=== PATIENT | female | born 1940 | race Caucasian/White ===

== ENCOUNTER 2019-07-29 11:52 | Outpatient (CLI) | payer MEDICARE, SELFPAY ==
[2019-07-29 12:35] LABS: Hemoglobin A1C 6.6 % (<5.7)
[2019-07-29 12:39] LABS: Alanine Aminotransferase 17 U/L (4-35); Albumin Level 4.5 g/dL (3.5-5.1); Alkaline Phosphatase 125 U/L (38-126); Aspartate Amino Transferase 25 U/L (14-36); Bilirubin,Total 0.4 mg/dL (0.2-1.3); Blood Urea Nitrogen 17 mg/dL (7-17); Calcium 9.6 mg/dL (8.4-10.2); Carbon Dioxide 31 mmol/L (22-30); Chloride 101 mmol/L (98-107); Cholesterol 163 mg/dL (0-200); Estimated Glomerular Filt Rate > 60; Glucose 121 mg/dL (65-105); HDL Direct 61 mg/dL; Potassium 3.7 mmol/L (3.4-5.0); Sodium 138 mmol/L (137-145); Triglycerides 94 mg/dL (<150)
[2019-07-29 12:49] LABS: LDL Cholesterol Direct 72 mg/dL
[2019-07-29 13:32] LABS: Free T4 Free Thyroxine 1.27 ng/mL (0.78-2.19)
== END 2019-07-29 11:53 | disposition home or self-care (01) ==
PROVIDERS: PCP Internal Medicine; Visit Provider Nurse Practitioner
DX: E03.9 Hypothyroidism, unspecified (principal); E78.5 Hyperlipidemia, unspecified; E11.9 Type 2 diabetes mellitus without complications
CPT/HCPCS: 36415; 80053; 80061; 83036; 84439; 84443

== ENCOUNTER 2020-01-08 12:26 | Outpatient (CLI) | payer MEDICARE, SELFPAY ==
--- NOTE | ~2020-01-08 | XR_ITS ---
XR chest 2V 01/08/2020 12:49 Indication: Dry cough. Procedure: PA and lateral views of the chest Comparison: Comparison to multiple prior studies sequentially, with oldest reviewed study dated 10/29. Findings: There is a right perihilar spiculated mass, compatible with treated malignancy. Elevated ri ght diaphragm. Heart size normal. Left lung clear. No acute focal pneumonia, edema or effusion. Impression: 1: Right perihilar mass, compatible with treated malignancy. Reviewed, dictated and finalized at location B. IGERATION MANAGER Impression: 1: Right perihilar mass, compatible with treated malignancy.
== END 2020-01-08 12:27 | disposition home or self-care (01) ==
LOC: ANHIMG 12:30
PROVIDERS: PCP Internal Medicine; Visit Provider Internal Medicine
DX: R05 Cough (principal); R91.8 Other nonspecific abnormal finding of lung field
CPT/HCPCS: 71046

== ENCOUNTER 2020-05-08 11:55 | Outpatient (CLI) | payer MEDICARE, SELFPAY ==
[2020-05-08 12:55] LABS: Add Urine Microscopic? YES; Appearance Urine Cloudy (Clear); Bilirubin Urine Negative (Negative); Blood Urine 2+ (Negative); Color Urine Yellow (Yellow); Glucose Urine UA Negative (Negative); Ketones Urine Negative (Negative); Leukocyte Esterase Ur 3+ LEU/UL (Negative); Mucus Urine Rare /lpf; Nitrate Urine Negative (Negative); Protein Urine 1+ mg/dL (Negative); RBC Urine 21-50 /hpf (0-2); Specific Grav Ur 1.017 (1.001-1.035); Squamous Epithelial Cell Urine Occasional /hpf (Few); Urobilinogen Urine Negative mg/dL (<2.0); WBC Urine >75 /hpf
[2020-05-08 13:01] LABS: Hemoglobin A1C 5.7 % (<5.7)
[2020-05-08 13:06] LABS: Alanine Aminotransferase 15 U/L (4-35); Albumin Level 4.5 g/dL (3.5-5.1); Alkaline Phosphatase 100 U/L (38-126); Anion Gap 8 mmol/L (8-16); Aspartate Amino Transferase 25 U/L (14-36); Bilirubin,Total 0.5 mg/dL (0.2-1.3); Blood Urea Nitrogen 16 mg/dL (7-17); Calcium 9.6 mg/dL (8.4-10.2); Carbon Dioxide 32 mmol/L (22-30); Chloride 99 mmol/L (98-107); Cholesterol 180 mg/dL (0-200); Estimated Glomerular Filt Rate > 60; Glucose 104 mg/dL (65-105); HDL Direct 70 mg/dL; Potassium 3.9 mmol/L (3.4-5.0); Sodium 139 mmol/L (137-145); Triglycerides 104 mg/dL (<150)
[2020-05-08 13:13] LABS: LDL Cholesterol Direct 70 mg/dL
== END 2020-05-08 11:56 | disposition home or self-care (01) ==
PROVIDERS: PCP Internal Medicine; Referring Provider Nurse Practitioner; Visit Provider Nurse Practitioner
DX: E03.9 Hypothyroidism, unspecified (principal); E78.5 Hyperlipidemia, unspecified; E11.9 Type 2 diabetes mellitus without complications; R30.0 Dysuria
CPT/HCPCS: 36415; 80053; 80061; 81001; 83036; 84443; 87086; 87088

== ENCOUNTER 2020-08-24 17:15 | Outpatient (CLI) | payer MEDICARE, SELFPAY | END 2020-08-24 17:16 | disposition home or self-care (01) | LOC: ANHLAB 17:17 | PROVIDERS: PCP Internal Medicine; Visit Provider Internal Medicine | DX: E03.9 Hypothyroidism, unspecified (principal); R41.3 Other amnesia | CPT/HCPCS: 36415; 82607; 84443 ==

== ENCOUNTER 2020-12-14 15:23 | Outpatient (CLI) | payer MEDICARE, SELFPAY ==
[2020-12-14 16:14] LABS: Alanine Aminotransferase 21 U/L (4-35); Albumin Level 4.8 g/dL (3.5-5.1); Alkaline Phosphatase 104 U/L (38-126); Anion Gap 9 mmol/L (8-16); Aspartate Amino Transferase 28 U/L (14-36); Bilirubin,Total 0.3 mg/dL (0.2-1.3); Blood Urea Nitrogen 18 mg/dL (7-17); Calcium 10.4 mg/dL (8.4-10.2); Carbon Dioxide 32 mmol/L (22-30); Chloride 97 mmol/L (98-107); Cholesterol 193 mg/dL (0-200); Estimated Glomerular Filt Rate > 60; Glucose 116 mg/dL (65-110); HDL Direct 80 mg/dL; Potassium 3.4 mmol/L (3.4-5.0); Sodium 138 mmol/L (137-145); Triglycerides 231 mg/dL (<150)
[2020-12-14 16:22] LABS: Creatinine Urine 264.5 mg/dL
[2020-12-14 16:25] LABS: LDL Cholesterol Direct 73 mg/dL
[2020-12-14 16:27] LABS: MALB Creatinine Ratio 6.1 mg/g (0-30); Microalbumin Urine Random 16.1 mg/L (0-16.7)
[2020-12-14 16:37] LABS: Vitamin D 25 Hydroxy 39.2 ng/mL
== END 2020-12-14 15:24 | disposition home or self-care (01) ==
LOC: ANHLAB 15:25
PROVIDERS: PCP Internal Medicine; Visit Provider Nurse Practitioner
DX: E11.9 Type 2 diabetes mellitus without complications (principal); E03.9 Hypothyroidism, unspecified; E78.2 Mixed hyperlipidemia; Z13.21 Encounter for screening for nutritional disorder
CPT/HCPCS: 36415; 80053; 80061; 82043; 82306; 83036; 84443

== ENCOUNTER 2021-06-04 14:41 | Outpatient (CLI) | payer MEDICARE, SELFPAY ==
[2021-06-04 15:27] LABS: Hemoglobin A1C 5.9 % (<5.7)
[2021-06-04 15:33] LABS: Alanine Aminotransferase 28 U/L (4-35); Albumin Level 4.8 g/dL (3.5-5.1); Alkaline Phosphatase 105 U/L (38-126); Anion Gap 9 mmol/L (8-16); Aspartate Amino Transferase 36 U/L (14-36); Bilirubin,Total 0.2 mg/dL (0.2-1.3); Blood Urea Nitrogen 17 mg/dL (7-17); Calcium 10.2 mg/dL (8.4-10.2); Carbon Dioxide 34 mmol/L (22-30); Chloride 95 mmol/L (98-107); Cholesterol 212 mg/dL (0-200); Estimated Glomerular Filt Rate 60; Glucose 117 mg/dL (65-110); HDL Direct 74 mg/dL; Potassium 3.9 mmol/L (3.4-5.0); Sodium 138 mmol/L (137-145); Triglycerides 265 mg/dL (<150)
[2021-06-04 15:44] LABS: LDL Cholesterol Direct 77 mg/dL
[2021-06-04 16:12] LABS: Creatinine Urine 67.1 mg/dL; MALB Creatinine Ratio 14.9 mg/g (0-30)
== END 2021-06-04 14:42 | disposition home or self-care (01) ==
PROVIDERS: PCP Internal Medicine; Visit Provider Nurse Practitioner
DX: E11.9 Type 2 diabetes mellitus without complications (principal); E78.2 Mixed hyperlipidemia; E03.9 Hypothyroidism, unspecified
CPT/HCPCS: 36415; 80053; 80061; 82043; 83036; 84443

== ENCOUNTER 2021-06-29 16:08 | Outpatient (CLI) | payer MEDICARE, SELFPAY ==
--- NOTE | ~2021-06-29 | XR_ITS ---
EXAMINATION: XR chest 2V Exam Date/Time: 06/29/2021 16:30 CDT HISTORY: R05 - Cough X 1 WEEK, SOB X 2 WKS, NO CARDIAC HX Comparison: 01/08/2020. RESULT: Lines, tubes, and devices: None. Lungs and pleura: Right suprahilar and hilar opacity with retraction, unchanged given interval diffe rences in technique, previously reported as treated malignancy. No acute pulmonary finding. Cardiomediastinal silhouette: Stable cardiomediastinal silhouette. Other: No acute osseous or upper abdominal finding. IMPRESSION: No acute cardiopulmonary process. Reviewed, dictated and finalized at location K.
== END 2021-06-29 16:09 | disposition home or self-care (01) ==
PROVIDERS: PCP Internal Medicine; Visit Provider Internal Medicine
DX: R05.9 Cough, unspecified (principal)
CPT/HCPCS: 71046

== ENCOUNTER 2021-12-28 11:57 | Outpatient (CLI) | payer MEDICARE, SELFPAY ==
--- NOTE | ~2021-12-28 | XR_ITS ---
EXAMINATION: XR chest 2V DATE: 12/28/2021 12:23 INDICATION: One week of painful dry cough TECHNIQUE: PA and lateral views of the chest were obtained. COMPARISON: Chest radiograph dated 06/29/2021 FINDINGS: Unchanged volume loss in the right hemithorax. Stable appearance of a right perihilar mass with spicu lated margins consistent with reported treated malignancy. No new airspace opacities, pulmonary edema , pleural effusion or pneumothorax. Heart size is normal. Mild S-shaped thoracolumbar scoliosis. Chol ecystectomy clips in right upper quadrant. IMPRESSION: 1. Stable appearance of a right perihilar mass consistent with treated malignancy. No acute cardiopul monary disease. Reviewed, dictated and finalized at location A. 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 Stable appearance of a right perihilar mass consistent with treated malignan cy. No acute cardiopulmonary disease.
[2021-12-28 12:56] LABS: Hemoglobin A1C 6.5 % (<5.7)
[2021-12-28 13:00] LABS: Alanine Aminotransferase 21 U/L (6-35); Albumin Level 4.8 g/dL (3.5-5.1); Alkaline Phosphatase 86 U/L (38-126); Anion Gap 12 mmol/L (8-16); Aspartate Amino Transferase 28 U/L (14-36); Bilirubin,Total 0.4 mg/dL (0.2-1.3); Blood Urea Nitrogen 19 mg/dL (7-17); Calcium 9.6 mg/dL (8.4-10.2); Carbon Dioxide 27 mmol/L (22-30); Chloride 98 mmol/L (98-107); Cholesterol 180 mg/dL (0-200); Estimated Glomerular Filt Rate 53; Glucose 78 mg/dL (65-110); HDL Direct 75 mg/dL; Potassium 4.1 mmol/L (3.4-5.0); Sodium 137 mmol/L (137-145); Triglycerides 114 mg/dL (<150)
[2021-12-28 13:13] LABS: LDL Cholesterol Direct 60 mg/dL
== END 2021-12-28 11:58 | disposition home or self-care (01) ==
LOC: ANHIMG 11:59
PROVIDERS: PCP Internal Medicine; Visit Provider Nurse Practitioner
DX: E78.5 Hyperlipidemia, unspecified (principal); E11.9 Type 2 diabetes mellitus without complications; E03.9 Hypothyroidism, unspecified; R05.9 Cough, unspecified; R91.8 Other nonspecific abnormal finding of lung field
CPT/HCPCS: 36415; 71046; 80053; 80061; 83036; 84443

== ENCOUNTER 2022-03-25 13:20 | Outpatient (CLI) | payer MEDICARE, SELFPAY ==
--- NOTE | ~2022-03-25 | XR_ITS ---
XR lumbar spine 2-3V DATE: 03/25/2022 13:48 INDICATION: Back pain TECHNIQUE: AP, lateral, coned lateral lumbosacral views COMPARISON: None FINDINGS: There is mild thoracolumbar levoscoliosis. Diffuse osteopenia. There is mild degenerative disc disease at L1-2, with moderate to moderately severe degenerative disc disease at L2-3, L3-4 and severe degenerative disc disease at L4-5 and L5-S1. There is grade 1 anterolisthesis at degenerative changes apophyseal joints. The included lower thoracic and lumbar pedicles are intact. No lumbar spine fracture or bone destruct ion is detected. There is degenerative change at the sacroiliac joints. Status post cholecystectomy. IMPRESSION: Multilevel degenerative disc disease, most severe at L4-5 and L5-S1 Grade 1 anterolisthesis at L3-4 Osteopenia, scoliosis Reviewed, dictated and finalized at location A. 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
--- NOTE | ~2022-03-25 | XR_ITS ---
XR shoulder LT min 2V DATE: 03/25/2022 13:48 INDICATION: Left shoulder pain TECHNIQUE: 4 views COMPARISON: None FINDINGS: There is osteopenia. There is degenerative disc disease, uncovertebral joints and apophyseal joint spurring of the cervica l spine. There is dextroscoliosis and degenerative change of the thoracic spine. Normal alignment at the acromion clavicular and glenohumeral joints of the left shoulder. No left cole ulder fracture, dislocation, periosteal reaction or bone destruction is detected. No abnormal left sh oulder soft tissue calcification. IMPRESSION: Osteopenia Prominent cervical spondylosis Dextroscoliosis and degenerative change of the thoracic spine Reviewed, dictated and finalized at location A. SCHOOL
== END 2022-03-25 13:21 | disposition home or self-care (01) ==
LOC: ANHIMG 13:27
PROVIDERS: PCP Internal Medicine; Visit Provider Nurse Practitioner
DX: M85.812 Other specified disorders of bone density and structure, left shoulder (principal); M47.892 Other spondylosis, cervical region; M19.012 Primary osteoarthritis, left shoulder; M51.36 Other intervertebral disc degeneration, lumbar region; M85.88 Other specified disorders of bone density and structure, other site
CPT/HCPCS: 72100; 73030

== ENCOUNTER 2023-02-24 15:29 | Outpatient (CLI) | payer MEDICARE, SELFPAY ==
[2023-02-24 15:53] LABS: Hematocrit 38.4 % (37.0-47.0); Hemoglobin 12.1 g/dL (12.0-15.0); Mean Corpuscular HGB Conc 31.5 g/dl (32-36); Mean Corpuscular Hemoglobin 27.8 pg (26-34); Mean Corpuscular Volume 88.3 fl (80-100); Mean Platelet Volume 9.6 fl (7.4-10.4); Platelet Count Result 361 k/mm3 (150-375); Red Blood Count 4.35 M/mm3 (4.2-5.4); Red Cell Distribution Width 14.4 % (11.5-14.5); White Blood Count 9.4 K/mm3 (4.5-10.0)
[2023-02-24 16:08] LABS: Alanine Aminotransferase 22 U/L (6-35); Albumin Level 4.4 g/dL (3.5-5.1); Alkaline Phosphatase 107 U/L (38-126); Anion Gap 8 mmol/L (8-16); Aspartate Amino Transferase 28 U/L (14-36); Bilirubin,Total 0.7 mg/dL (0.2-1.3); Blood Urea Nitrogen 21 mg/dL (7-17); Calcium 9.9 mg/dL (8.4-10.2); Carbon Dioxide 30 mmol/L (22-30); Chloride 101 mmol/L (98-107); Cholesterol 199 mg/dL (0-200); Estimated Glomerular Filt Rate 53; Glucose 115 mg/dL (65-110); HDL Direct 79 mg/dL; Potassium 3.8 mmol/L (3.4-5.0); Sodium 139 mmol/L (137-145); Triglycerides 128 mg/dL (<150)
[2023-02-24 16:09] LABS: Hemoglobin A1C 6.5 % (<5.7)
[2023-02-24 16:13] LABS: Microalbumin Urine Random 24.7 mg/L (0-16.7)
[2023-02-24 16:18] LABS: LDL Cholesterol Direct 90 mg/dL
== END 2023-02-24 15:30 | disposition home or self-care (01) ==
LOC: ANHLAB 15:30
PROVIDERS: PCP Family Medicine; Visit Provider Family Medicine
DX: C37 Malignant neoplasm of thymus (principal); E03.9 Hypothyroidism, unspecified; E11.9 Type 2 diabetes mellitus without complications; E78.2 Mixed hyperlipidemia; E83.52 Hypercalcemia; F40.9 Phobic anxiety disorder, unspecified; G47.00 Insomnia, unspecified; G47.33 Obstructive sleep apnea (adult) (pediatric); I10 Essential (primary) hypertension; I25.10 Atherosclerotic heart disease of native coronary artery without angina pectoris; Z85.118 Personal history of other malignant neoplasm of bronchus and lung; Z99.89 Dependence on other enabling machines and devices
CPT/HCPCS: 36415; 80053; 80061; 82043; 83036; 84443; 85027

== ENCOUNTER 2024-01-02 12:05 | Outpatient (CLI) | payer MEDICARE, SELFPAY ==
[2024-01-02 12:22] LABS: Mean Corpuscular HGB Conc 33.3 g/dl (32-36); Mean Corpuscular Hemoglobin 29.1 pg (26-34); Mean Corpuscular Volume 87.2 fl (80-100); Mean Platelet Volume 9.6 fl (7.4-10.4); Platelet Count Result 317 k/mm3 (150-375); Red Blood Count 4.13 M/mm3 (4.2-5.4); Red Cell Distribution Width 14.6 % (11.5-14.5); White Blood Count 7.9 K/mm3 (4.5-10.0)
[2024-01-02 12:46] LABS: Alanine Aminotransferase 17 U/L (6-35); Albumin Level 4.4 g/dL (3.5-5.1); Alkaline Phosphatase 111 U/L (38-126); Anion Gap 8 mmol/L (4-12); Aspartate Amino Transferase 26 U/L (14-36); Bilirubin,Total 0.5 mg/dL (0.2-1.3); Blood Urea Nitrogen 18 mg/dL (7-17); Calcium 9.7 mg/dL (8.4-10.2); Carbon Dioxide 31 mmol/L (22-30); Chloride 101 mmol/L (98-107); Estimated Glomerular Filt Rate 53; Glucose 135 mg/dL (65-110); Potassium 3.5 mmol/L (3.4-5.0); Sodium 140 mmol/L (137-145)
[2024-01-02 13:10] LABS: Hemoglobin A1C 6.4 % (<5.7)
[2024-01-02 13:53] LABS: Folic Acid > 20.0 ng/mL (2.76->20)
== END 2024-01-02 12:06 | disposition home or self-care (01) ==
PROVIDERS: PCP Family Medicine; Visit Provider Family Medicine
DX: C37 Malignant neoplasm of thymus (principal); E03.9 Hypothyroidism, unspecified; E11.9 Type 2 diabetes mellitus without complications; E78.5 Hyperlipidemia, unspecified; G47.00 Insomnia, unspecified; G47.33 Obstructive sleep apnea (adult) (pediatric); I10 Essential (primary) hypertension; I25.10 Atherosclerotic heart disease of native coronary artery without angina pectoris; Z00.00 Encounter for general adult medical examination without abnormal findings; Z99.89 Dependence on other enabling machines and devices; G62.9 Polyneuropathy, unspecified
CPT/HCPCS: 36415; 80053; 82607; 82746; 83036; 84443; 85027

== ENCOUNTER 2024-01-26 11:31 | Outpatient (CLI) | payer MEDICARE, SELFPAY ==
[2024-01-26 11:58] LABS: Add Urine Microscopic? YES; Appearance Urine Clear (Clear); Bacteria Urine None Seen /hpf; Bilirubin Urine 1+ (Negative); Blood Urine Negative (Negative); Color Urine Dark Yellow (Yellow); Glucose Urine UA Negative (Negative); Ketones Urine Trace mg/dL (Negative); Leukocyte Esterase Ur 1+ LEU/UL (Negative); Nitrate Urine Negative (Negative); Protein Urine Trace mg/dL (Negative); Specific Grav Ur 1.029 (1.001-1.035); Squamous Epithelial Cell Urine Few /hpf (Few)
[2024-01-26 12:51] LABS: Iron 79 ug/dL (37-170)
[2024-01-26 13:00] LABS: Percent Iron Saturation 24 % (20-50)
[2024-01-26 13:09] LABS: Free T4 Free Thyroxine 1.13 ng/dL (0.78-2.19)
[2024-01-27 10:40] LABS: T3 Free 2.7 pg/mL (2.3-4.2)
== END 2024-01-26 11:32 | disposition home or self-care (01) ==
LOC: ANHLAB 11:33
PROVIDERS: PCP Family Medicine; Visit Provider Family Medicine
DX: E11.9 Type 2 diabetes mellitus without complications (principal); D64.9 Anemia, unspecified; E03.9 Hypothyroidism, unspecified; R42 Dizziness and giddiness; R53.83 Other fatigue
CPT/HCPCS: 36415; 81001; 82728; 83540; 83550; 84439; 84443; 84480

== ENCOUNTER 2024-04-03 08:14 | Outpatient (CLI) | payer MEDICARE, SELFPAY ==
--- NOTE | 2024-04-03 08:25 | ECHO_ITS ---
Patient Info Name: Chari Molina Age: 83 years : 1940 Gender: Female Ht: 60 in Wt: 117 lbs BSA: 1.51 m2 HR: 92 bpm BP: 169 / 97 mmHg Heart Rhythm: Sinus Rhythm Technical Quality: Fair Exam Date: 04/03/2024 8:40 AM Exam Location: Echo Lab Patient Status: Outpatient Admit Date: 04/03/2024 Staff Ordering Physician: Rodney Galindo DO Business Continuity Planning Director: Chapincito Jones RDCS Attending Provider: Rodney Galindo DO Referring Physician: Mateo BRAMBILA; Exam Type: CA echo dop color flow w con Study Info Indications R06.00 - Dyspnea, unspecified Complete two-dimensional, color flow and Doppler transthoracic echocardiogram is performed. Summary 1. Complete two-dimensional, color flow and Doppler transthoracic echocardiogram is performed. 2. Left ventricular chamber dimension is normal. 3. Left ventricular systolic function is normal, estimated at 60-65%. 4. The left ventricular diastolic function is grade I diastolic dysfunction. 5. E/e' 11 is mildly elevated. 6. Left atrial chamber dimension is mildly enlarged. 7. There is mild tricuspid valve regurgitation. 8. No pulmonary hypertension, estimated pulmonary arterial systolic pressure is 24 mmHg. 9. There is trivial pericardial effusion. Left Ventricle E/e' 11 is mildly elevated. Left ventricular chamber dimension is normal. Left ventricular systolic function is normal, estimated at 60-65%. The left ventricular diastolic function is grade I diastolic dysfunction. Right Ventricle Right ventricular systolic function is normal and with normal TAPSE 1.8 cm. Right ventricular chamber dimension is normal. Left Atria Left atrial chamber dimension is mildly enlarged. Right Atria Right atrial chamber dimension is normal. Aortic Valve The aortic valve is not well visualized. Cannot determine number of aortic valve leaflets. There is no aortic valve stenosis. There is no aortic valve regurgitation. Pulmonic Valve There is no pulmonic regurgitation. Mitral Valve There is no mitral valve stenosis. There is no mitral valve regurgitation. Tricuspid Valve There is mild tricuspid valve regurgitation. No pulmonary hypertension, estimated pulmonary arterial systolic pressure is 24 mmHg. Pericardium/Pleural There is trivial pericardial effusion. Inferior Vena Cava Normal inferior vena cava with >50% collapse upon inspiration consistent with normal right atrial pressure, 5 mmHg. Aorta The aortic root size at the sinus of Valsalva is normal. Left Ventricular Outflow Tract Name Value Normal LVOT 2D LVOT Diameter 1.91 cm LVOT Doppler LVOT Peak Velocity 95.68 cm/s LVOT Peak Gradient 4 mmHg LVOT Mean Gradient 2 mmHg LVOT VTI 20.17 cm LVOT VTI/AV VTI Ratio 0.79 LVOT Stroke Volume 58.07 ml LVOT CO 4.73 l/min LVOT CI 3.14 L/min/m2 Pulmonic Valve Name Value Normal PV Doppler PV Peak Velocity 88.36 cm/s PV Peak Gradient 3 mmHg Mitral Valve Name Value Normal MV Doppler MV Decel [place] 308.63 cm/s2 MV PHT 0 s MV Area (PHT) 4.06 cm2 4.00-5.00 MV Diastolic Function MV E Peak Velocity 57.66 cm/s MV A Peak Velocity 86.75 cm/s MV E/A 0.66 MV Decel Time 0 s MV Annular TDI MV Septal e' Velocity 5.51 cm/s >=8.00 MV E/e' (Septal) 10.46 <=8.00 MV Lateral e' Velocity 4.82 cm/s >=10.00 MV E/e' (Lateral) 11.97 <=8.00 MV e' Average 5.17 MV E/e' (Average) 11.21 Tricuspid Valve Name Value Normal TV Regurgitation Doppler TR Peak Velocity 219.89 cm/s TR Peak Gradient 19 mmHg Estimated PAP/RSVP RA Pressure 5 mmHg <=5 PA Systolic Pressure 24 mmHg <36 RV Systolic Pressure 24 mmHg <36 TV Annular TDI TV Lateral Renu s' Velocity 10.01 cm/s 9.50-18.70 Aortic Valve Name Value Normal AV Doppler AV Peak Velocity 135.51 cm/s AV Peak Gradient 7 mmHg AV Mean Gradient 4 mmHg AV VTI 25.53 cm AV Area (Cont Eq VTI) 2.28 cm2 >=3.00 AV Area (Cont Eq Nicolás) 2.03 cm2 AV V1/V2 Ratio 0.71 AV Regurgitation 2D LVOT Area 2.88 cm2 Ventricles Name Value Normal LV Dimensions 2D/MM IVS Diastolic Thickness (2D) 0.77 cm 0.60-1.00 LVID Diastole (2D) 3.90 cm 3.80-5.20 LVIW Diastolic Thickness (2D) 0.80 cm 0.60-0.90 LVID Systole (2D) 2.78 cm 2.20-3.50 LVOT Diameter 1.91 cm LV Mass (2D Cubed) 87.40 g 67.00-162.00 LV Mass Index (2D Cubed) 0.01 g/cm2 0.00-0.01 Relative Wall Thickness (2D) 0.41 LV Fractional Shortening/Ejection Fraction 2D/MM LV Fractional Shortening (2D) 29 % 27-45 LV EF (2D Teichnatalioz) 56 % 54-74 LV Diastolic Volume (4C MOD) 69.26 ml LV EF (4C MOD) 56 % LV Diastolic Volume (2C MOD) 79.37 ml LV EF (2C MOD) 55 % LV Diastolic Volume (BP MOD) 74.75 ml 46.00-106.00 LV Diastolic Volume Index (BP MOD) 0.05 l/m2 0.03-0.06 LV Systolic Volume (BP MOD) 32.97 ml 14.00-42.00 LV Systolic Volume Index (BP MOD) 0.02 l/m2 0.01-0.02 LV EF (BP MOD) 56 % 54-74 LV Diastolic Length (4C) 7.24 cm LV Systolic Length (4C) 5.93 cm LV Stroke Volume (4C MOD) 38.96 ml Atria Name Value Normal LA Dimensions LA Volume (4C A-L) 44.17 ml LA Volume (BP A-L) 45.76 ml RA Dimensions RA Area (4C) 14.19 cm2 <=18.00 Report Signatures
--- OUTSIDE RECORDS SUMMARY | 2024-04-03 08:25 | XMS_ITS | Continuity of Care Document ---
Author Organization [facility] Address [address] [facility] [address] [place] [address] Phone Care Team Providers Care Paper Stacker Name Role Phone Josh OD OD, Zhang [...] Tear Osmolarity Microfluidic Analysis No Refraction [facility] Frames Purchases Progressive Lens Per Lens Anti-reflective [...] Diagnoses Date Provider Providers Copied on Encounter [facility], [address] [place] [address] [address], [place], [place], [address], tel:[phone] [facility] No Information Josh OD Zhang. [address], [place], [address], [place]. tel:[phone] Office/outpat ient Visit, Est [facility], [address], [place], [place], [address], [place] tel:[phone] [facility] blurry vision (chief complaint)d ry eyes (chief complaint) CUPPING OF OPTIC DISCTEAR FILM INSUFFIC NOSPUNCTATE KERATITIS Minervay OD Zhang. [address], [place], [address], [place]. tel:[phone] Referring Provider: Zhang Moreno OD P, [address] [place], [address] . tel:[phone] [facility], [address], [place], [place], [address], [place] tel:[phone] [facility] No Information [facility] . [address], [address], [place], [place], [address], [place]. tel:[phone] Referring Provider: Zhang Moreno OD P, [address] [facility], [place], [address] . tel:[phone] sulting Provider: Karol Padilla, [address] [facility], [place], [address]. [facility], [address] [place] [address] [address], [place], [place], [address], [place] tel:[phone] [facility] No Information Josh BREEN Zhang. [address] [facility], [place], [place], [address], [place]. tel:[phone] Referring Provider: Zhang Moreno OD P, [address] [facility], [place], [address] . tel:[phone] Office/outpat ient Visit, Est [facility], [address] [place] [address] [address], [place], [place], [address], [place] tel:[phone] [facility] No Information Josh BREEN Zhang. [address] [facility], [place], [place], [address], [place]. tel:[phone] Referring Provider: Zhang Moreno OD P, [address] [facility], [place], [address] . tel:[phone] Office/outpat ient Visit, [facility], [address] [place] [address] [address], [place], [place], [address], [place] tel:[phone] [facility] No Information Josh BREEN Zhang. [address] [facility], [place], [place], [address], [place]. tel:[phone] Referring Provider: Zhang Moreno OD P, [address] [facility], [place], [address] . tel:[phone] Office/outpat ient Visit, [facility], [address], [place], [place], [address], [place] tel:[phone] [facility] No Information Josh Holcomb. [address], [place], [address], [place]. tel:[phone] Referring Provider: Zhang Moreno OD P, [address] [place], [address] . tel:[phone] Family History Family Member Type Diagnosis Age At Onset Mother Problem (finding) diabetes melli tus in first degree relative Cousin Problem (finding) degenerative disorder o f macula Payers Payer name Insurance type Covered republican ID Authoriza tion(s) No Information Social History [...]
--- OUTSIDE RECORDS SUMMARY | 2024-04-03 08:25 | XMS_ITS | Patient Health Summary ---
Author Organization [facility] Address [address] [place] [address] Care Team Providers Care Assembler Type Bar And Segment Name Role Phone Nael Iglesias MD Primary Care Provider [phone] Note from [facility],non-owned Affiliates and Associated Physician Practices is amultiple site organization consisting of ambulatory clinics and hospital sitesin [place], [place], [place] and [place]. This disclosure is being madepursuant to the Care Everywhere program and may not contain all information available regarding this patient. Last updated 17.[facility] Social History Tobacco Use Types Packs/Day Years Used Date Smoking Tobacco: Never Assessed Sex and Gender Information Value Date Recorded Sex Assigned at Not on file Gender Identity Not on file Sexual Orientation Not on file Procedures * MAMMO BILAT SCREENING(Performed 09/15/2014) Performed for Other screening mammogram * MAMMO BILAT SCREENING(Performed 07/30/2013) Performed for Other screening mammogram * MAMMO BILAT SCREENING(Performed 06/05/2012) Performed for Other Screening Mammogram * MAMMO BILAT SCREENING(Performed 05/09/2011) Performed for Other screening mammogram * PAP IG RFLX HPV ASCU(Performed 04/25/2011) * MAMMO BILAT SCREENING(Performed 05/25/2010) Performed for Other screening mammogram * MAMMO BILAT SCREENING(Performed 05/14/2009) Performed for Other Screening Mammogram * PATHOLOGY/GENETICS HISTORICAL-ONBASE(Performed 11/25/2008) * PATHOLOGY/GENETICS HISTORICAL-ONBASE(Performed 10/10/2007) * PATHOLOGY/GENETICS HISTORICAL-ONBASE(Performed 11/20/2006) * GROSS + MICRO EXAM(Performed 12/14/1999) * GROSS + MICRO EXAM(Performed 06/17/1997) Results * JOSE ARMANDO SCREENING DIGITAL IMAGE BILATERAL [id number] (09/15/2014 10:43 AM CDT) Only the most recent of6 resultswithin the time period is included. Anatomical Region Laterality Modality Breast Bilateral Mammography 09/15/2014 3:45 PM CDT Narrative 09/15/2014 3:47 PM CDT EXAMINATION: Digital screening mammogram with tomosynthesis on 09/15/14 PRIOR: 2013 FINDINGS: Low dose full field digital tomosynthesis exam was performed with 2D and 3D acquisitions. Computer assisted detection was utilized. Tissue is fatty. There is no significant change since the prior mammogram. ASSESSMENT: BIRADS 1 : Negative mammogram RECOMMENDATION: Screening mammogram in one year. Thank you for allowing us to participate in the care of your patient. [facility] utilizes [employer] as a reminder system to notify patients of their next recommended mammogram. Nael Iglesias MD MAMMO ORDERABLES * PAP IG RFLX HPV ASCU (04/25/2011) PART OF UTERINE CERVIX / Unknown 04/25/2011 Narrative [facility] - 04/27/2011 12:15 PM CDT Preferred Lab:->OTHER EXTERNAL LAB Historical Provider LAB - PATHOLOGY/C YTOLOGY ORDERABLES Performing Organization Address [facility] de Phone Number [facility] * PATHOLOGY/GENETICS HISTORICAL-ONBASE (11/25/2008) Only the most recent of3 resultswithin the time period is included. 11/25/2008 Historical Provider LAB - CHEMISTRY O RDERABLES Performing Organization Address [facility] Co de Phone Number [facility] * GROSS + MICRO EXAM (12/14/1999 2:29 PM FLAT BED OPERATOR) Only the most recent of2 resultswithin the time period is included. Result CASE NUMBER [id number] Comment: ORDERING PHYSICIAN INA BERG SPECIMEN TYPE Endocervical Curret Date 12/14/1999 Physician Elaina Berg Description Two separate specimens are received in formalin labeled with the patient's name. The first specimen is labeled endocervical curettings and consists of pink mucoid tissue fragment measuring 0.5 x 0.3 x 0.2 cm. The specimen is submitted in its entirety in cassette A. The second specimen is labeled with the patient's name and endometrial curettings and consists of pink mucoid, bloody soft tissue fragments measuring 1.5 x 0.3 x 0.2 cm. The specimen is submitted in its entirety in cassette B. AE/bk Microscopic Exam Section labeled A reveals blood, mucoid material intermixed with strips of endocervical and endometrial epithelium. No endometrial stroma or glands are present for evaluation. Section labeled B reveals blood, mucoid material intermixed with strips of cervical and endocervical epithelial fragments without any dysplasia. The endometrium shows mainly stroma with strips of surface epithelium from the stroma. No endometrial glandular elements are present for evaluation. This material is insufficient for phase evaluation. Diagnosis I. Endocervical curettings A. No pathologic diagnosis. II. Endometrial curettings A. Insufficient material for phase evaluation. B. No evidence of malignancy. Overhead Crane Operator bk Pathologist Eddie Alexandra M.D. [place]. 12/15/1999 1414 <2> CPT code 39435/91322, 57024/02000 MISCELLANEOUS SAMPLES / Unknown 12/14/1999 2:29 PM FLAT BED OPERATOR 12/14/1999 2:29 PM FLAT BED OPERATOR Historical Provider LAB - PATHOLOGY/C YTOLOGY ORDERABLES Care Teams Assembler Type Bar And Segment Relationship Specialty Start Date End Date Nael Iglesias MD [address] [place] [address] PCP - General 05/04/09
--- OUTSIDE RECORDS SUMMARY | 2024-04-03 08:25 | XMS_ITS | Clinical Summary ---
Author Organization [facility] Address [address] [place] [address] Care Team Providers Care Cashier Greeter Name Role Phone Unavailable Primary Care Provider Unavailabl e Social History Tobacco Use Types Packs/Day Years Used Date Smoking Tobacco: Never Assessed Comments Unknown Sex and Gender Information Value Date Recorded Sex Assigned at Not on file Legal Sex Female 7:16 PM CDT Gender Identity Not on file Sexual Orientation Not on file Plan of Treatment Health Maintenance Due Date Last Done Comments DTaP, Tdap and Td Vaccines ( 1 - Tdap) 08/20/1959 Zoster Vaccines (1 of 2) 1990 Dexa Scan (General) 2005 Pneumococcal Vaccine: 65+ Ye ars (1 of 1 - PCV) 2005 RSV Immunization or 60+ Years (1 - 1-dose 75+ series) 08/20/2015 COVID-19 Vaccine (2023-2 5 season) 2023 Influenza Adult (#1) 2023 Meningococcal B Vaccine Aged Out No l onger eligible based on patient's age to complete this topic Meningococcal Vaccine Aged Out No leonel catalina eligible based on patient's age to complete this topic RSV Immunizations Under 20 Months Aged Out No longer eligible based on patient's age to complete this topic
--- OUTSIDE RECORDS SUMMARY | 2024-04-03 08:25 | XMS_ITS | Referral Summary ---
Author Organization [facility] Address [address] [place] [address] Care Team Providers Care Senior Product Designer Name Role Phone Nael Iglesias MD Primary Care Provider [phone] Source Comments [facility],non-owned Affiliates and Associated Physician Practices is amultiple site organization consisting of ambulatory clinics and hospital sitesin [place], [place], [place] and [place]. This disclosure is being madepursuant to the Care Everywhere program and may not contain all information available regarding this patient. 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
--- OUTSIDE RECORDS SUMMARY | 2024-04-03 08:25 | XMS_ITS | Clinical Summary ---
Author Organization 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 COUNSELOR Gender Identity Not on file Sexual Orientation Not on file Plan of Treatment Health Maintenance Due Date Last Done Comments DEXA Bone Density 1940 Hepatitis C Virus (HCV) Screening 1940 TdaP Immunization 1940 Zoster Immunization (1 of 2) 1990 Respiratory Syncytial Virus (RSV) Immunization (Adult) (1 - 1-dose 75+ series) 08/20/2015 Pneumococcal Immunization (5 0+ years) (2 of 2 - PPSV23) 01/26/2018 01/26/2017 Influenza Immunization (#1) 2023 11/21/2011 SARS-COV-2 Immunization ( season) 2023 Pneumococcal Immunization Combined Discontinued 01/26/2017 Hepatitis B Immunization Aged Out No longer eligible based on patient's age to complete this topic Meningococcal Immunization (ACWY) Aged Out No longer eligible based on patient's age to complete this topic Rotavirus Immunization Aged Out No lo nger eligible based on patient's age to complete this topic
--- OUTSIDE RECORDS SUMMARY | 2024-04-03 08:25 | XMS_ITS | Clinical Summary ---
Author Organization [facility] Address [address] [place] [address] Care Team Providers Care Director Of Security Name Role Phone Nael Iglesias MD Primary Care Provider [phone] Source Comments [facility],non-owned Affiliates and Associated Physician Practices is amultiple site organization consisting of ambulatory clinics and hospital sitesin [place], [place], [place] and [place]. This disclosure is being madepursuant to the Care Everywhere program and may not contain all information available regarding this patient. Last updated 17.[id number] Family History Medical History Relation Name Comments Cancer - Breast Neg Hx Cancer - Ovarian Neg Hx Social History Tobacco Use Types Packs/Day Years Used Date Smoking Tobacco: Never Assessed Sex and Gender Information Value Date Recorded Sex Assigned at Not on file Gender Identity Not on file Sexual Orientation Not on file Plan of Treatment Health Maintenance Due Date Last Done Comments BONE DENSITY TESTING 1940 DTAP/TDAP/TD VACCINES (1 - Tdap) 08/20/1959 PNEUMOCOCCAL VACCINE 50+ (1 of 1 - PCV) 1990 ZOSTER VACCINE (1 of 2) 1990 Respiratory Syncytial Virus (RSV) Vaccine Pt: or over 60 yrs (1 - 1-dose 75+ series) 08/20/2015 COVID-19 VACCINE (2023-2 5 season) 2023 INFLUENZA VACCINE (#1) 2023 DEPRESSION SCREENING 02/07/2024 MEDICARE AWV CALENDAR YEAR 2024 HEPATITIS B VACCINE Aged Out No longe r eligible based on patient's age to complete this topic HIB VACCINE Aged Out No longer eligi ble based on patient's age to complete this topic HPV VACCINE Aged Out No longer eligi ble based on patient's age to complete this topic MENINGOCOCCAL (Group B) VACCINE Aged Out No longer eligible based on patient's age to complete this topic MENINGOCOCCAL VACCINE Aged Out No leonel catalina eligible based on patient's age to complete this topic Advance Directives Documents on File Type Date Recorded 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
== END 2024-04-03 08:15 | disposition home or self-care (01) ==
PROVIDERS: PCP Family Medicine; Visit Provider Internal Medicine Cardiovascular Disease
DX: R06.09 Other forms of dyspnea (principal); I07.1 Rheumatic tricuspid insufficiency; I31.39 Other pericardial effusion (noninflammatory)
CPT/HCPCS: 93306; C8929

== ENCOUNTER 2024-08-23 14:58 | Outpatient (CLI) | payer MEDICARE, SELFPAY ==
--- OUTSIDE RECORDS SUMMARY | 2024-08-23 15:02 | XMS_ITS | Clinical Summary ---
Author Organization 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 Gender Identity Not on file Sexual Orientation Not on file Plan of Treatment Health Maintenance Due Date Last Done Comments Hepatitis C Virus (HCV) Screening 1940 TdaP Immunization 1940 Zoster Immunization (1 of 2) 1990 Respiratory Syncytial Virus (RSV) Immunization (Adult) (1 - 1-dose 75+ series) 08/20/2015 Pneumococcal Immunization (5 0+ years) (2 of 2 - PPSV23) 01/26/2018 01/26/2017 SARS-COV-2 Immunization ( - season) 2023 Influenza Immunization (#1) 10/07/202411/07, 11/21/2011 Pneumococcal Immunization Combined Discontinued 01/26/2017 Hepatitis B Immunization Aged Out No longer eligible based on patient's age to complete this topic Human Papillomavirus (HPV) Immunization Aged Out No longer eligible based on patient's age to complete this topic Meningococcal Immunization (ACWY) Aged Out No longer eligible based on patient's age to complete this topic Rotavirus Immunization Aged Out No lo nger eligible based on patient's age to complete this topic
[2024-08-23 15:38] LABS: Hematocrit 37.9 % (37.0-47.0); Hemoglobin 12.2 g/dL (12.0-15.0); Mean Corpuscular HGB Conc 32.2 g/dl (32-36); Mean Corpuscular Hemoglobin 28.4 pg (26-34); Mean Corpuscular Volume 88.1 fl (80-100); Platelet Count Result 374 k/mm3 (150-375); Red Blood Count 4.30 M/mm3 (4.2-5.4); White Blood Count 10.4 K/mm3 (4.5-10.0)
[2024-08-23 15:48] LABS: Hemoglobin A1C 6.4 % (<5.7)
[2024-08-23 15:55] LABS: MALB Creatinine Ratio 6.7 mg/g (0-30)
[2024-08-23 15:58] LABS: Alanine Aminotransferase 23 U/L (6-35); Albumin Level 4.5 g/dL (3.5-5.1); Alkaline Phosphatase 85 U/L (38-126); Aspartate Amino Transferase 33 U/L (14-36); Bilirubin,Total 0.3 mg/dL (0.2-1.3); Blood Urea Nitrogen 22 mg/dL (7-17); Calcium 10.2 mg/dL (8.4-10.2); Carbon Dioxide 30 mmol/L (22-30); Estimated Glomerular Filt Rate 53; Glucose 95 mg/dL (65-110); Total Protein 8.5 g/dL (6.3-8.2)
[2024-08-23 16:16] LABS: Anion Gap 9 mmol/L (4-12); Chloride 101 mmol/L (98-107); Potassium 3.7 mmol/L (3.4-5.0); Sodium 140 mmol/L (137-145)
[2024-08-23 16:33] LABS: Thyroid Stimulating Hormone 11.600 uIU/mL (0.465-4.680)
== END 2024-08-23 14:59 | disposition home or self-care (01) ==
PROVIDERS: PCP Family Medicine; Visit Provider Family Medicine
DX: E03.9 Hypothyroidism, unspecified (principal); E11.9 Type 2 diabetes mellitus without complications; I10 Essential (primary) hypertension; I25.10 Atherosclerotic heart disease of native coronary artery without angina pectoris; C37 Malignant neoplasm of thymus; D64.9 Anemia, unspecified; G47.33 Obstructive sleep apnea (adult) (pediatric); G47.00 Insomnia, unspecified; R53.83 Other fatigue; Z99.89 Dependence on other enabling machines and devices; Z85.118 Personal history of other malignant neoplasm of bronchus and lung; Z79.899 Other long term (current) drug therapy
CPT/HCPCS: 36415; 80053; 82043; 83036; 84443; 85027

== ENCOUNTER 2024-12-03 14:47 | Outpatient (CLI) | payer MEDICARE, SELFPAY ==
--- OUTSIDE RECORDS SUMMARY | 2013-01-28 08:34 | XMS_ITS | Continuity of Care Document ---
Author Organization [facility] [place] [address] [facility] [address] [place] [address] Phone Care Team Providers Care Director Of Construction Name Role Phone Josh OD OD, Zhang Unavailable Unavailabl e Allergies, Adverse Reactions, Alerts Substance Reaction Status Criticality fluorescein Active No Information IODINE Active No Information Medications Medication Instructions Dosage Effective Dates (start - stop) Status Comments Systane 0.4 %-0.3 % Eye Drops - Active levothyroxine 100 mcg capsule take 1 capsule (100MCG) by oral route every day 100 MCG - Active fluoxetine 20 mg capsule take 1 capsule (20MG) by oral route every day in the morning 20 MG - Active atorvastatin 20 mg tablet take 1 tablet (20MG) by oral route every day 20 MG - Active hydrochlorothiazide 25 mg tablet take 1 tablet (25MG) by oral route every day 25 MG - Active methylphenidate 10 mg tablet take 1 tablet (10MG) by oral route 2 times every day 10 MG - Active clonazepam 1 mg tablet take 1 tablet (1M G) by oral route 3 times every day as needed 1 MG - Active Procedures Procedure Date Office/outpatient Visit, Est Visual Field Examination(s) SCODI, Posterior Segment Eye Photography Tear Osmolarity Microfluidic Analysis No Tear Osmolarity Microfluidic Analysis No Refraction [facility] Frames Purchases Progressive Lens Per Lens Anti-reflective Coating [employer] Tax Office/outpatient Visit, Est Visual Field Examination(s) SCODI, Posterior Segment Special Eye Evaluation QuantifEye Office/outpatient Visit, Est One Or More Rx Generated And Transmitted Special Eye Evaluation Visual Field Examination(s) Optic Nerve Topography Optic Nerve Topography Eye Photography Refraction [facility]ifEye Office/outpatient Visit, New No Script Refraction Special Eye Evaluation Visual Field Examination(s) Fundus Photography W/ Report QuantifEye Advance Directives Directive Yes / No Effective Date File Name No Information Encounters Encounter Description Practice Location Reason(s) For Visit Diagnoses Date Provider Providers Copied on Encounter [facility], [id number] [place] [address] [address], [place], [place], [id number], [place] tel:[phone] [facility] No Information Josh OD Zhang. [address] [place], [place], [address], [place]. tel:[phone] Office/outpat ient Visit, Est [facility], [address], [place], [place], [address], [place] tel:[phone] [facility] [employer] [place] CUPPING OF OPTIC DISCTEAR FILM INSUFFIC NOSPUNCTATE KERATITIS Minervay OD Zhang. [address] [place], [place], [id number], [place]. tel:[phone] Referring Provider: Zhang Moreno OD P, [address] [place], [address] . tel:[phone] [facility], [address], [place], [place], [address], [place] tel:[phone] [facility] No Information [facility] . [address] [facility], [address], [place], [place], [address], [place]. tel:[phone] Referring Provider: Zhang Moreno OD P, [address] [facility], [place], [address] . tel:[phone] sulting Provider: Karol Padilla, [address] [facility], [place], [address]. [facility], [address] [place] [address] [address], [place], [place], [address], [place] tel:[phone] [facility] No Information Josh Chavezn. [address], [place], [address], [place]. tel:[phone] Referring Provider: Zhang Moreno OD P, [address] [place], [address] . tel:[phone] Office/outpat ient Visit, [facility], [address] [place] [address] [address], [place], [place], [address], [place] tel:[phone] [facility] No Information Josh BREEN Zhang. [address] [place] [address], [place], [address], [place]. tel:[phone] Referring Provider: Zhang Moreno OD P, [address] [place], [address] . tel:[phone] Office/outpat ient Visit, [facility], [address] [place] [address] [address], [place], [place], [address], [place] tel:[phone] [facility] No Information Josh OD Zhang. [address] [place], [place], [address], [place]. tel:[phone] Referring Provider: Zhang Moreno OD P, [address] [place], [address] . tel:[phone] Office/outpat ient Visit, [facility], [address], [place], [place], [address], [place] tel:[phone] [facility] No Information Josh Holcomb. [address], [place], [address], [place]. tel:[phone] Referring Provider: Zhang Moreno OD P, [address] [place], [address] . tel:[phone] Family History Family Member Type Diagnosis Age At Onset Mother Problem (finding) diabetes melli tus in first degree relative Cousin Problem (finding) degenerative disorder o f macula Payers Payer name Insurance type Covered green party ID Authoriza tion(s) No Information Social History Type Description Quantity Date Captured Comments Sex Female Smoking Status No Information Chief Complaint And Reason For Visit No Information Reason For Referral Reason For Referral No Information History Of Present Illness Encounter Date Complaint History Of Prese nt Illness No Information Functional Status Date Functional Assessmen t No Information Instructions Date Instruction Additional Infor live - Return in 1 year w axel Moreno O.D. for Complete Exam. Related to PUNCTATE KERATITIS CUPPING OF OPTIC DIS C TEAR FILM INSUFFIC NOS PUNCTATE KERATITIS - pleased to find results stable OUrx given for specs-pt to updatept to call if vision decreases or dry eye symptoms worsencont Systane. Systane Balance given Related to PUNCTATE KERATITIS Assessments Type Assessment Date No Information Patient Care Teams Name Effective Dates (start - stop) Status Members No Information
[2024-12-03 15:22] LABS: Hematocrit 38.3 % (37.0-47.0); Hemoglobin 12.5 g/dL (12.0-15.0); Immature Granulocyte Percent A 0.2 % (0-0.5); Lymphocytes Absolute Auto 2.18 K/mm3 (0.9-3.2); Mean Corpuscular HGB Conc 32.6 g/dl (32-36); Mean Corpuscular Hemoglobin 28.4 pg (26-34); Mean Corpuscular Volume 87.0 fl (80-100); Nucleated Red Blood Cells Absolute Auto 0.000 K/mm3 (0.0-0.012); Nucleated Red Blood Cells Perc 0.0 % (0.0-0.2); Platelet Count Result 367 k/mm3 (150-375); Red Blood Count 4.40 M/mm3 (4.2-5.4); White Blood Count 10.6 K/mm3 (4.5-10.0)
[2024-12-03 15:42] LABS: Total Protein 8.4 g/dL (6.3-8.2)
[2024-12-03 15:59] LABS: Free T4 Free Thyroxine 1.42 ng/dL (0.78-2.19)
[2024-12-03 16:18] LABS: Thyroid Stimulating Hormone 3.820 uIU/mL (0.465-4.680)
--- OUTSIDE RECORDS SUMMARY | 2024-12-03 17:12 | XMS_ITS | Clinical Summary ---
Author Organization 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
--- OUTSIDE RECORDS SUMMARY | 2024-12-03 17:12 | XMS_ITS | Clinical Summary ---
Author Organization [facility] Address [address] [place] [id number] Care Team Providers Care Keymodule Assembly Supervisor Name Role Phone Unavailable Primary Care Provider [...] Td Vaccines ( 1 - Tdap) 08/20/1959 Pneumococcal Vaccine: 50+ Ye ars (1 of 1 - PCV) 1990 Zoster Vaccines (1 of 2) 1990 Dexa Scan (General) 2005 RSV Immunization or 60+ Years (1 - 1-dose 75+ series) 08/20/2015 COVID-19 Vaccine (2024-2 6 season) 2024 Influenza Adult (#1) 2024 Hepatitis A Vaccines Aged Out No long er eligible based on patient's age to complete this topic Meningococcal B Vaccine Aged Out No l onger eligible based on patient's age to complete this topic Meningococcal Vaccine Aged Out No leonel catalina eligible based on patient's age to complete this topic RSV Immunizations Under 20 Months Aged Out No longer eligible based on patient's age to complete this topic
--- OUTSIDE RECORDS SUMMARY | 2024-12-03 17:12 | XMS_ITS | Clinical Summary ---
Author Organization [facility] Address [address] [place] [address] Care Team Providers Care Irrigation Manager Name Role Phone Nael Iglesias MD Primary Care Provider [phone] Source Comments [facility],non-owned Affiliates and Associated Physician Practices is amultiple site organization consisting of ambulatory clinics and hospital sitesin [place], [place], [place] and [place]. This disclosure is being madepursuant to the Care Everywhere program and may not contain all information available regarding this patient. 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 Gender Identity Not on file Sexual Orientation Not on file Plan of Treatment Health Maintenance Due Date Last Done Comments BONE DENSITY TESTING 1940 DTAP/TDAP/TD VACCINES (1 - Tdap) 08/20/1959 PNEUMOCOCCAL VACCINE 50+ (1 of 1 - PCV) 1990 ZOSTER VACCINE (1 of 2) 1990 Respiratory Syncytial Virus (RSV) Vaccine Pt: or over 60 yrs (1 - 1-dose 75+ series) 08/20/2015 DEPRESSION SCREENING 02/07/2024 COVID-19 VACCINE ( - 2023-2 5 season) 2024 INFLUENZA VACCINE (#1) 2024 HEPATITIS B VACCINE Aged Out No longe r eligible based on patient's age to complete this topic HIB VACCINE Aged Out No longer eligi ble based on patient's age to complete this topic HPV VACCINE Aged Out No longer eligi ble based on patient's age to complete this topic MENINGOCOCCAL (Group B) VACC INE SHARED DECISION-MAKING Aged Out No longer eligibl e based on patient's age to complete this topic MENINGOCOCCAL GROUPS A/C/Y/W VACCINE Aged Out No longer eligible b ased on patient's age to complete this topic Insurance [facility] MEDICARE Advance Directives Documents on File Type Date Recorded 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
== END 2024-12-03 14:48 | disposition home or self-care (01) ==
LOC: ANHLAB 14:50
PROVIDERS: PCP Family Medicine; Visit Provider Family Medicine
DX: R77.9 Abnormality of plasma protein, unspecified (principal); I10 Essential (primary) hypertension; E11.9 Type 2 diabetes mellitus without complications; E03.9 Hypothyroidism, unspecified
CPT/HCPCS: 36415; 84155; 84439; 84443; 85025

== ENCOUNTER 2025-01-14 15:39 | Outpatient (CLI) | payer MEDICARE, SELFPAY ==
[2025-01-15 14:08] LABS: Albumin 3.6 g/dL (2.9-4.4); Alpha-1-Globulin 0.2 g/dL (0.0-0.4); Alpha-2-Globulin 0.8 g/dL (0.4-1.0); Gamma Globulin 1.5 g/dL (0.4-1.8)
[2025-01-16 14:09] LABS: Albumin, U 31.4 % (.); Alpha-1-Globulin, U 4.3 % (.); Alpha-2-Globulin, U 12.4 % (.); Beta Globulin, U 17.8 % (.); Gamma Globulin, U 34.1 % (.)
== END 2025-01-14 15:40 | disposition home or self-care (01) ==
PROVIDERS: PCP Family Medicine; Visit Provider Family Medicine
DX: R77.8 Other specified abnormalities of plasma proteins (principal)
CPT/HCPCS: 84155; 84156; 84165; 84166